=== PATIENT | female | born 1995 | race Caucasian/White ===

== ENCOUNTER 2020-10-04 17:12 | Emergency (ER) | payer BC ==
--- OUTSIDE RECORDS SUMMARY | 2020-10-04 17:16 | XMS REPORT | Continuity of Care Document ---
:1995 Author Organization [facility] t Address 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 [facility] dysmenorrh Dysmenorrh 0-27 da ea ea 00:00: Medical 00 Group Bacterial Bacterial Problem Active 2020-0 [facility] vaginosis Vaginosis 1-31 da 00:00: Medical 00 Group Cigarette Cigarette Problem Active 2020-0 [facility] smoker Smoker 1 da 00:00: Medical 00 Group History of History of Problem Active 2020-0 [facility] tubal Tubal 1 da ligation Ligation 00:00: Medica l 00 Group Gynecologi Gynecologi Problem Active 2020-0 [facility] c c 1 da examinatio Examinatio 00:00: Me dical n n 00 Group History of History of Problem Active 2020-0 [facility] endometria Endometria 1- da l ablation l Ablation 00:00: Me dical 00 Group Menorrhagi Menorrhagi Problem Active [facility] a a 5-21 da 00:00: Medical 00 Group Sterilizat Sterilizat Problem Active [facility] ion ion 5-21 da requested Requested 00:00: Medi chani 00 Group Allergies, Adverse Reactions, Alerts Allergy Allergy Status Severity Reaction(s) Onset Inactive Treating Comm ents Source Name Type Date Date Clinician Codeine Allergy Active Moderate Hives [facility] substanc [facility] Social History Smoking Status Start Date Stop Date Source Light Tobacco Smoker [facility] Medications Ordered Filled Start Stop Current Ordering Indication Dosage Frequency Signature Comments Components Source Medication Medication Date Date Medication? Clinician (SIG) Name Name buspirone buspirone No buspirone [facility] 15 mg 15 mg 15 mg da tablet tablet tablet Medical Group cefuroxime cefuroxime No 1 BID cefuroxime [facility] axetil 250 axetil 250 axetil 250 da mg tablet mg tablet mg tablet Medical Take 1 Take 1 Take 1 Group tablet tablet tablet twice a day twice a day twice a by oral by oral day by route for 7 route for 7 oral route days. days. for 7 days. clindamycin clindamycin No 1capsul TID clindamyci [facility] HCl 300 mg HCl 300 mg e(s) n HCl 300 da capsule capsule mg capsule Med ical Take 1 Take 1 Take 1 Group capsule 3 capsule 3 capsule 3 times a day times a day times a by oral by oral day by route for 7 route for 7 oral route days. days. for 7 days. escitalopra escitalopra No escitalopr [facility] m 20 mg m 20 mg am 20 mg da tablet tablet tablet Medical Group hydrocodone hydrocodone No hydrocodon [facility] 5 5 e 5 da mg-acetamin mg-acetamin mg-acetami Medical ophen 325 ophen 325 nophen 325 Group mg tablet mg tablet mg tablet TK 1-2 T PO TK 1-2 T PO TK 1-2 T Q 6 H PRN P Q 6 H PRN P PO Q 6 H PRN P ibuprofen ibuprofen No ibuprofen [facility] 800 mg 800 mg 800 mg da tablet TK 1 tablet TK 1 tablet TK Medical T PO Q 6 H T PO Q 6 H 1 T PO Q 6 Group PRN PRN H PRN metronidazo metronidazo No metronidaz [facility] le 500 mg le 500 mg ole 500 mg da tablet Take tablet Take tablet Medical 1 tablet 1 tablet Take 1 Group twice a day twice a day tablet by oral by oral twice a route for 7 route for 7 day by days. days. oral route for 7 days. naproxen naproxen No naproxen [facility] 500 mg 500 mg 500 mg da tablet tablet tablet Medical Group oxycodone-a oxycodone-a No oxycodone- [facility] cetaminophe cetaminophe acetaminop da n 5 mg-325 n 5 mg-325 hen 5 Me dical mg tablet mg tablet mg-325 mg Group tablet sulfamethox sulfamethox No sulfametho [facility] azole 800 azole 800 xazole 800 da mg-trimetho mg-trimetho mg-trimeth Medical prim 160 mg prim 160 mg oprim 160 Group tablet tablet mg tablet Vital Signs Vital Name Observation Time Observation Value Comments Source BP Diastolic 2020-04-12 00:00:00 91 mm[Hg] [facility] Height 2020-04-12 00:00:00 62 [in_i] [facility] BMI (Body Mass 2020-04-12 00:00:00 28.5 kg/m2 [facility] Medical Index) Group BP Systolic 2020-04-12 00:00:00 145 mm[Hg] [facility] Body Weight 2020-04-12 00:00:00 156 [lb_av] [facility] BP Diastolic 2020-03-26 00:00:00 81 mm[Hg] [facility] Height 2020-03-26 00:00:00 62 [in_i] [facility] BMI (Body Mass 2020-03-26 00:00:00 28.5 kg/m2 [facility] Medical Index) Group BP Systolic 2020-03-26 00:00:00 135 mm[Hg] [facility] Body Weight 2020-03-26 00:00:00 155.6 [lb_av] [facility] BP Diastolic 2020-03-16 00:00:00 87 mm[Hg] [facility] Height 2020-03-16 00:00:00 62 [in_i] [facility] BMI (Body Mass 2020-03-16 00:00:00 28.2 kg/m2 [facility] BP Systolic 2020-03-16 00:00:00 129 mm[Hg] [facility] Body Weight 2020-03-16 00:00:00 154 [lb_av] [facility] BP Systolic 2019-06-20 00:00:00 129 mm[Hg] [facility] Body Weight 2019-06-20 00:00:00 147.1 [lb_av] [facility] BP Diastolic 2019-06-20 00:00:00 85 mm[Hg] [facility] Height 2019-06-20 00:00:00 62 [in_i] [facility] BMI (Body Mass 2019-06-20 00:00:00 26.9 kg/m2 [facility] BP Diastolic 2018-11-28 00:00:00 85 mm[Hg] [facility] Height 2018-11-28 00:00:00 62 [in_i] [facility] BMI (Body Mass 2018-11-28 00:00:00 25.8 kg/m2 [facility] BP Systolic 2018-11-28 00:00:00 138 mm[Hg] [facility] Body Weight 2018-11-28 00:00:00 141.1 [lb_av] [facility] BP Diastolic 2018-11-11 00:00:00 86 mm[Hg] [facility] Height 2018-11-11 00:00:00 62 [in_i] [facility] BMI (Body Mass 2018-11-11 00:00:00 26.1 kg/m2 [facility] BP Systolic 2018-11-11 00:00:00 145 mm[Hg] [facility] Body Weight 2018-11-11 00:00:00 142.8 [lb_av] [facility] BP Diastolic 2018-10-08 00:00:00 87 mm[Hg] [facility] Height 2018-10-08 00:00:00 62 [in_i] [facility] BMI (Body Mass 2018-10-08 00:00:00 25.8 kg/m2 [facility] BP Systolic 2018-10-08 00:00:00 140 mm[Hg] [facility] Body Weight 2018-10-08 00:00:00 141 [lb_av] [facility] Procedures Procedure Date / Time Performing Clinician Source Performed Total Laparoscopic 2020-03-31 00:00:00 [facility] US, transvaginal 2020-03-16 00:00:00 [facility] Endometrial Ablation 2018-11-13 00:00:00 [facility] Bilateral Tubal Ligation 2018-11-13 00:00:00 [facility] Plan of Care Planned Activity Planned Date Details Comments Source Diagnostic Test 2020-04-12 urinalysis, [facility] Pending 00:00:00 dipstick [code = Group urinalysis, dipstick] Diagnostic Test 2020-04-12 culture, urine [facility] Pending 00:00:00 [code = culture, Group urine] Diagnostic Test 2020-04-12 [place], vaginal [facility] Pending 00:00:00 [code = [place], Group vaginal] Encounters Start End Encounter Admission Attending Care Care Encounter Source Date/Time Date/Time Type Type Clinicians Facility Department ID 2020-04-13 2020-04-13 [facility] [id number] 00:00:00 00:00:00 [facility] [id number] [facility] [id number] 2020-04-12 2020-04-12 Fan FAGAN [place] - [id number] [facility] 00:00:00 00:00:00 Discovery jean paul Lawler MD: [address] [place] [address] [address] [address] , Ph. [phone] 2020-03-26 2020-03-26 Fan FAGAN [place] - [id number] [facility] 00:00:00 00:00:00 Discovery jean paul Lawler MD: [address] [place] [address] 101, [place] [address] , Ph. [phone] 2020-03-16 2020-03-16 Fan FAGAN [place] - [id number] [facility] 00:00:00 00:00:00 Discovery jean paul Lawler MD: [address] [place] [address] , Ph. [phone] 2020-03-08 2020-03-08 Telephone [place] [id number] 00:00:00 00:00:00 Ambika Kinsey [facility] [id number] CLINICS [id number] 2020-03-08 2020-03-[id number] 00:00:00 00:00:00 Ambika Kinsey [facility] [id number] CLINICS [id number] 2020-03-05 2020-03-[id number] [id number] 11:03:05 11:33:05 Visit Ambika Kinsey [facility] [id number] CLINICS [id number] 2019-06-20 2019-06-20 Kamila Timmons MM [place] - [id number] 1 [facility] 00:00:00 00:00:00 Discovery jean paul Osuna NP: [address] [place] [address] , Ph. [phone] 2018-11-28 2018-11-28 Fan FAGAN [place] - [id number] [facility] 00:00:00 00:00:00 Discovery jean paul Lawler MD: [address] [place] [address] , Ph. [phone] 2018-11-11 2018-11-11 Fan FAGAN [place] - [id number] [facility] 00:00:00 00:00:00 Discovery jean paul Lawler MD: [address] [place] [address] , Ph. [phone] 2018-10-08 2018-10-08 Fan [facility] [place] - [id number] [facility] 00:00:00 00:00:00 Discovery jean paul Lawler MD: [address] [place] [address] , Ph. [phone] Results Test Description Test Time Test Comments Results Result Comments Source Urinalysis macro (dipstick) panel - Urine 2020-04-12 09:57:2 8 Test Item Value Reference Range Interpretation Comme nts Leukocytes (test code = Leukocytes) Small Nitrite (test code = Nitrite) negative Urobilinogen (test code = Urobilinogen) 2 Protein (test code = Protein) 30 pH (test code = pH) 5.5 Blood (test code = Blood) Large Specific [place] (test code = Specific [place]) 1.030 Ketone (test code = Ketone) Negative Bilirubin (test code = Bilirubin) Negative Glucose (test code = Glucose) 100 Appearance (test code = Appearance) Slightly Cloudy Color (test code = Color) Yellow [facility] W Auto Differential panel - [id number] 10:43:00 Test Item Value Reference Range Interpretation Comments white blood count (test code = 11.3 K/uL 4.0-11.5 white blood count) red blood count (test code = red 4.87 M/uL 3.80-5.20 blood count) hemoglobin (test code = 14.0 g/dL 10.5-15.7 hemoglobin) hematocrit (test code = 42.4 % 34.0-50.0 hematocrit) MCV [Entitic volume] (test code = 87.1 fL 86-100 19214-2) mean corpuscular hemoglobin (test 28.7 pg 26.2-33.4 code = mean corpuscular hemoglobin) mean corpuscular HGB conc (test 33.0 g/dL 30-34 code = mean corpuscular HGB conc) red cell distribution width (test 12.6 % 12.0-15.5 code = red cell distribution width) platelet count (test code = 311 K/uL 165-450 platelet count) mean platelet volume (test code = 9.0 fL 9.4-12.6 L mean platelet volume) Segmented neutrophils/100 64.6 % 44.4-80.1 leukocytes in Blood (test code = 72061-9) Immature granulocytes [#/volume] 0.0 K/uL 0.0-0.03 in Blood (test code = 38354-1) lymphocyte% (test code = 27.1 % 10.0-50.0 lymphocyte%) mono % (test code = mono %) 6.4 % 3.6-12.0 eos % (test code = eos %) 1.0 % 0.0-5.4 Basophils/100 leukocytes in 0.5 % 0.1-1.2 Unspecified specimen (test code = 19633-4) Band form neutrophils [#/volume] 7.28 K/uL 1.56-6.13 H in Blood (test code = 70822-4) Lymphocytes [#/volume] in 3.1 K/uL 1.18-3.74 Unspecified specimen by Automated count (test code = 15967-2) mono # (test code = mono #) 0.72 K/uL 0.24-0.86 eos # (test code = eos #) 0.11 K/uL 0.04-0.36 basophil # (test code = basophil 0.06 K/uL 0.01-0.08 #) NRBC% (test code = NRBC%) 0 /100 WBC 0-0.2 NRBC# (test code = NRBC#) 0 [facility] [id number] 10:01:09 Test Item Value Reference Range Interpretation Comments Test (test code = negative Test) [facility] [id number] 10:01:09 Test Item Value Reference Range Interpretation Comments Test (test code = negative Test) [facility]Neisseria gonorrhoeae DNA [Presence] in Unspecified specimen by SACHA with [id number] 00:00:00 Test Item Value Reference Range Interpretation Comments CT/NG (test code = CT/NG) normal [facility]Neisseria gonorrhoeae DNA [Presence] in Unspecified specimen by SACHA with [id number] 00:00:00 Test Item Value Reference Range Interpretation Comments CT/NG (test code = CT/NG) normal [facility]dipstick) panel - [id number] 11:38:56 Test Item Value Reference Range Interpretation Comments Leukocytes (test code = Trace Leukocytes) Nitrite (test code = negative Nitrite) Urobilinogen (test code = .2 Urobilinogen) Protein (test code = Negative Protein) pH (test code = pH) 5.5 Blood (test code = Blood) Non-Hemolyzed: Trace Specific [place] (test 1.030 code = Specific [place]) Ketone (test code = Negative Ketone) Bilirubin (test code = Negative Bilirubin) Glucose (test code = Negative Glucose) Appearance (test code = Clear Appearance) Color (test code = Color) Yellow [facility]stick) panel - [id number] 11:38:56 Test Item Value Reference Range Interpretation Comments Leukocytes (test code = Trace Leukocytes) Nitrite (test code = negative Nitrite) Urobilinogen (test code = .2 Urobilinogen) Protein (test code = Negative Protein) pH (test code = pH) 5.5 Blood (test code = Blood) Non-Hemolyzed: Trace Specific [place] (test 1.030 code = Specific [place]) Ketone (test code = Negative Ketone) Bilirubin (test code = Negative Bilirubin) Glucose (test code = Negative Glucose) Appearance (test code = Clear Appearance) Color (test code = Color) Yellow [facility]stick) panel - [id number] 11:38:56 Test Item Value Reference Range Interpretation Comments Leukocytes (test code = Trace Leukocytes) Nitrite (test code = negative Nitrite) Urobilinogen (test code = .2 Urobilinogen) Protein (test code = Negative Protein) pH (test code = pH) 5.5 Blood (test code = Blood) Non-Hemolyzed: Trace Specific [place] (test 1.030 code = Specific [place]) Ketone (test code = Negative Ketone) Bilirubin (test code = Negative Bilirubin) Glucose (test code = Negative Glucose) Appearance (test code = Clear Appearance) Color (test code = Color) Yellow [facility] Group[facility] macro (dipstick) panel - [id number] 10:41:00 Test Item Value Reference Range Interpretation Comments Leukocytes (test code = Leukocytes) Trace Nitrite (test code = Nitrite) negative Urobilinogen (test code = .2 Urobilinogen) Protein (test code = Protein) 30 pH (test code = pH) 5.5 Blood (test code = Blood) Moderate Specific [place] (test code = 1.030 Specific [place]) Ketone (test code = Ketone) Negative Bilirubin (test code = Bilirubin) Small Glucose (test code = Glucose) Negative Appearance (test code = Appearance) Clear Color (test code = Color) Yellow [facility] GroupUrinalysis macro (dipstick) panel - [id number] 09:53:00 Test Item Value Reference Range Interpretation Comments Leukocytes (test code = Leukocytes) Small Nitrite (test code = Nitrite) negative Urobilinogen (test code = .2 Urobilinogen) Protein (test code = Protein) 30 pH (test code = pH) 5.5 Blood (test code = Blood) Negative Specific [place] (test code = 1.030 Specific [place]) Ketone (test code = Ketone) Trace Bilirubin (test code = Bilirubin) Small Glucose (test code = Glucose) Negative Appearance (test code = Appearance) Clear Color (test code = Color) Yellow [facility] GroupUrinalysis macro (dipstick) panel - [id number] 09:53:00 Test Item Value Reference Range Interpretation Comments Leukocytes (test code = Leukocytes) Small Nitrite (test code = Nitrite) negative Urobilinogen (test code = .2 Urobilinogen) Protein (test code = Protein) 30 pH (test code = pH) 5.5 Blood (test code = Blood) Negative Specific [place] (test code = 1.030 Specific [place]) Ketone (test code = Ketone) Trace Bilirubin (test code = Bilirubin) Small Glucose (test code = Glucose) Negative Appearance (test code = Appearance) Clear Color (test code = Color) Yellow [facility] Grouppregnancy test, [id number] 09:40:00 Test Item Value Reference Range Interpretation Comments Test (test code = negative Test) [facility] Grouppregnancy test, [id number] 09:40:00 Test Item Value Reference Range Interpretation Comments Test (test code = negative Test) [facility] W Auto Differential panel - [id number] 08:56:00 Test Item Value Reference Range Interpretation Comments white blood count (test code = 12.4 K/uL 4.0-11.5 H white blood count) red blood count (test code = red 5.09 M/uL 3.80-5.20 blood count) Hemoglobin [Mass/volume] in Blood 13.9 g/dL 10.5-15.7 (test code = 718-7) hematocrit (test code = hematocrit) 42.5 % 34.0-50.0 Erythrocyte mean corpuscular volume 83.7 fL 78-98 [Entitic volume] (test code = 00836-2) Erythrocyte mean corpuscular 27.2 pg 26.2-33.4 hemoglobin [Entitic mass] (test code = 59972-7) mean corpuscular HGB conc (test 32.6 g/dL 31.5-36.2 code = mean corpuscular HGB conc) red cell distribution width (test 11.4 % 11.5-15.5 L code = red cell distribution width) Platelets [#/volume] in Blood (test 348 K/uL 137-338 H code = 39510-3) Platelet mean volume [Entitic 6.7 fL 8.4-11.8 L volume] in Blood (test code = 22646-6) Neutrophils.band form/100 65.8 % 44.4-80.1 leukocytes in Blood (test code = 12207-7) Lymphocytes/100 leukocytes in Body 24.6 % 10.0-50.0 fluid (test code = 42599-9) Monocytes/100 leukocytes in Blood 6.3 % 3.6-12.0 by Automated count (test code = 5905-5) Eosinophils/100 leukocytes in Blood 2.4 % 0.0-5.4 by Automated count (test code = 713-8) Basophils/100 leukocytes in 0.9 % 0.0-0.79 H Unspecified specimen (test code = 48464-0) [facility] W Auto Differential panel - [id number] 08:56:00 Test Item Value Reference Range Interpretation Comments white blood count (test code = 12.4 K/uL 4.0-11.5 H white blood count) red blood count (test code = red 5.09 M/uL 3.80-5.20 blood count) Hemoglobin [Mass/volume] in Blood 13.9 g/dL 10.5-15.7 (test code = 718-7) hematocrit (test code = hematocrit) 42.5 % 34.0-50.0 Erythrocyte mean corpuscular volume 83.7 fL 78-98 [Entitic volume] (test code = 89176-3) Erythrocyte mean corpuscular 27.2 pg 26.2-33.4 hemoglobin [Entitic mass] (test code = 45993-5) mean corpuscular HGB conc (test 32.6 g/dL 31.5-36.2 code = mean corpuscular HGB conc) red cell distribution width (test 11.4 % 11.5-15.5 L code = red cell distribution width) Platelets [#/volume] in Blood (test 348 K/uL 137-338 H code = 25158-1) Platelet mean volume [Entitic 6.7 fL 8.4-11.8 L volume] in Blood (test code = 16374-3) Neutrophils.band form/100 65.8 % 44.4-80.1 leukocytes in Blood (test code = 31798-9) Lymphocytes/100 leukocytes in Body 24.6 % 10.0-50.0 fluid (test code = 29939-1) Monocytes/100 leukocytes in Blood 6.3 % 3.6-12.0 by Automated count (test code = 5905-5) Eosinophils/100 leukocytes in Blood 2.4 % 0.0-5.4 by Automated count (test code = 713-8) Basophils/100 leukocytes in 0.9 % 0.0-0.79 H Unspecified specimen (test code = 68985-7) [facility]
[2020-10-04] MEDS ORDERED: NA CHLORIDE 0.9% 1,000 ML ONE (19:48)
[2020-10-04 19:49] LABS: Absolute Lymphocytes (CBC) 2.8 K/uL (0.7-4.9); Basophils % 0.5 % (0-1.3); Hematocrit 44.2 % (36.0-45.0); Lymphocytes % 24.5 % (15.3-44.8); MPV 7.7 fL (7.6-11.3); RBC Red Blood Cell Count 5.22 M/uL (3.86-4.86)
--- NOTE | 2020-10-04 19:59 | RAD REPORT ---
EXAM DESCRIPTION: CT - Head Brain Wo Cont - 10/04/2020 7:45 pm CLINICAL HISTORY: DIZZINESS Headache, drowsiness COMPARISON: No comparisons TECHNIQUE: All CT scans are performed using dose optimization technique as appropriate and may inclu de automated exposure control or mA/KV adjustment according to patient size. FINDINGS: No intracranial hemorrhage, hydrocephalus or extra-axial fluid collection.No areas of brai n edema or evidence of midline shift. The paranasal sinuses and mastoids are clear. The calvarium is intact. IMPRESSION: No acute intracranial abnormality.
--- NOTE | 2020-10-04 20:02 | RAD REPORT ---
EXAM DESCRIPTION: RAD - Chest Single View - 10/04/2020 7:57 pm CLINICAL HISTORY: PALPITATIONS Chest pain. COMPARISON: Head Brain Wo Cont dated 10/04/2020 FINDINGS: Portable technique limits examination quality. The lungs are grossly clear. The heart is normal in size. No displaced fractures. IMPRESSION: No acute intrathoracic process suspected.
[2020-10-04 20:15] LABS: ALT/SGPT 17 U/L (12-78); AST/SGOT 13 U/L (15-37); Albumin 4.3 g/dL (3.4-5.0); Alkaline Phosphatase 108 U/L (45-117); BUN Blood Urea Nitrogen 5 mg/dL (7-18); Bicarbonate 26 mmol/L (21-32); Bilirubin Direct 0.1 mg/dL (0-0.2); Bilirubin Total 0.4 mg/dL (0.2-1.0); Glucose Level 88 mg/dL (74-106); Magnesium 2.2 mg/dL (1.8-2.4); Potassium 3.5 mmol/L (3.5-5.1); Protein, Total 8.2 g/dL (6.4-8.2); Sodium Level 138 mmol/L (136-145); Troponin (Emerg Dept Use Only) < 0.02 ng/mL (0.0-0.045)
--- NOTE | 2020-10-04 20:58 | ER ---
Nurse's Notes [facility] Name: Lula Ellis Age: 25 yrs Sex: Female : 1995 Arrival Date: 10/04/2020 Time: 17:15 Bed 2 Private MD: Diagnosis: Headache;Palpitations Presentation: 10/04 17:26 Chief complaint: Patient states: Woke up this morning shaky, dizzy and lightheaded, ca1 vision started to blur. Went to my DrNarcisa and she did a covid test and it was negative. last BGL at the doctor's office at 1530 - 1600 was 88. Coronavirus screen: Client denies travel out of the [place] in the last 14 days. The client reports previous COVID testing was negative. Date of collection: October 04, 2020. Ebola Screen: Patient negative for fever greater than or equal to 101.5 degrees Fahrenheit, and additional compatible Ebola Virus Disease symptoms Patient denies exposure to infectious person. Patient denies travel to an Ebola-affected area in the 21 days before illness onset. No symptoms or risks identified at this time. Initial Sepsis Screen: Does the patient meet any 2 criteria? No. Patient's initial sepsis screen is negative. Does the patient have a suspected source of infection? No. Patient's initial sepsis screen is negative. Risk Assessment: Do you want to hurt yourself or someone else? Patient reports no desire to harm self or others. Onset of symptoms was October 04, 2020. 17:26 Method Of Arrival: Ambulatory ca1 17:26 Acuity: SHABANA 3 ca1 17:33 Note BGL 84. 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 Flu vaccine is not up to date. - Social history:: Smoking status: Patient reports the use of cigarette tobacco products, smokes one-half pack cigarettes per day. Screenin:16 Abuse screen: Denies threats or abuse. Nutritional screening: No deficits noted. ea Tuberculosis screening: No symptoms or risk factors identified. Fall Risk None identified. Assessment: 19:56 General: Appears in no apparent distress. Behavior is calm, cooperative, appropriate jb4 for age. Pain: Denies pain. Neuro: Level of Consciousness is awake, alert, obeys commands, Oriented to person, place, time. Cardiovascular: Patient's skin is warm and dry. Respiratory: Airway is patent Respiratory effort is even, unlabored, Respiratory pattern is regular, symmetrical. Derm: Skin is pink, warm \T\ dry. 20:53 Reassessment: Patient and/or family updated on plan of care and expected duration. Pain ea level reassessed. Patient is alert, oriented x 3, equal unlabored respirations, skin warm/dry/pink. Provider at bedside updating pt on plan of care. 21:29 Reassessment: Patient and/or family updated on plan of care and expected duration. Pain ea level reassessed. Patient is alert, oriented x 3, equal unlabored respirations, skin warm/dry/pink. Discharge instruction given to patient verbalized the understanding of instruction. Pt left ED ambulatory accompanied by family, pt tolerating well. Patient states feeling better. Vital Signs: 17:26 BP 140 / 95; Pulse 110; Resp 16 S; Temp 97.9(TE); Pulse Ox 100% on R/A; Weight 70.67 ca1 kg; Height 5 ft. 2 in. (157.48 cm) (R); Pain 0/10; 20:55 BP 128 / 80; Pulse 78; Resp 18; Pulse Ox 98% on R/A; ea 21:30 BP 120 / 78; Pulse 70; Resp 18; Pulse Ox 98% ; ea 17:26 Body Mass Index 28.50 (70.67 kg, 157.48 cm) ca1 ED Course: 17:15 Patient arrived in ED. ds1 17:29 Triage completed. ca1 17:30 Arm band placed on right wrist. ca1 19:07 Dion Doan NP is PHCP. pm1 19:07 Josr Sol MD is Attending Physician. pm1 19:16 Melissa Larose RN is Primary Nurse. ea 19:18 Patient has correct armband on for positive identification. Bed in low position. Call ea light in reach. Side rails up X2. 19:39 Inserted saline lock: 22 gauge in left antecubital area, using aseptic technique. Blood ds4 collected. 19:44 CT Head Brain wo Cont In Process Unspecified. EDMS 19:56 XRAY Chest (1 view) In Process Unspecified. EDMS 20:57 Joel Ruelas MD is Attending Physician. pm1 21:29 No provider procedures requiring assistance completed. IV discontinued, intact, ea bleeding controlled, No redness/swelling at site. Pressure dressing applied. Administered Medications: 19:48 Drug: NS 0.9% 1000 ml Route: IV; Rate: 1000 ml; Site: left antecubital; ea 21:31 Follow up: Response: No adverse reaction; IV Status: Completed infusion; IV Intake: ea 1000ml 21:00 Drug: Benadryl (diphenhydrAMINE) 12.5 mg Route: IVP; Site: left antecubital; ea 21:32 Follow up: Response: No adverse reaction ea 21:04 Drug: TORadol (ketorolac) 30 mg Route: IVP; Site: left antecubital; ea 21:31 Follow up: Response: No adverse reaction ea 21:04 Drug: Reglan (metoCLOPramide) 10 mg Route: IVP; Site: left antecubital; ea 21:31 Follow up: Response: No adverse reaction ea Intake: 21:31 IV: 1000ml; Total: 1000ml. ea Outcome: 20:57 Discharge ordered by . pm1 21:29 Discharged to home ambulatory. ea 21:29 Condition: stable 21:29 Discharge instructions given to patient, Instructed on discharge instructions, follow up and referral plans. Demonstrated understanding of instructions, follow-up care. 21:30 Patient left the ED. ea Signatures: Dispatcher [employer] EDMI Annmarie Yates ds1 Manoj Robles ds4 Dion Doan, SUDHA MARINE ELECTRICIAN HELPER pm1 Carlos Gutierrez RN RN jb4 Melissa Larose RN RN ea Acob, Cheryl, RN RN ca1 Corrections: (The following items were deleted from the chart) 17:31 17:26 Chief complaint: Patient states: Woke up this morning shaky, dizzy and ca1 lightheaded, vision started to blur. Went to my DrNarcisa and she did a covid test and it was negative. last BGL at the doctor's office at 1530 - 1600 ca1
--- NOTE | 2020-10-04 20:58 | EDPHYS ---
Physician Documentation [facility] Name: Lula Ellis Age: 25 yrs Sex: Female : 1995 Arrival Date: 10/04/2020 Time: 17:15 Bed 2 Private MD: ED Physician Joel Ruelas HPI: 10/04 19:21 This 25 yrs old Female presents to ER via Ambulatory with complaints of pm1 Headache, dizziness, palpitations. 19:21 The patient presents with a history of heart skipping beats. Onset: The pm1 symptoms/episode began/occurred today. Duration: The patient or guardian reports multiple episodes, that have now resolved. Modifying factors: The symptoms are aggravated by nothing. The symptoms are alleviated by nothing. Associated signs and symptoms: Pertinent positives: lightheadedness, headache, Pertinent negatives: chest pain, cough, nausea, SOB, vomiting. Severity of symptoms: in the emergency department the symptoms have resolved. The patient has been recently seen by a physician: the patient's primary care provider, with similar presenting complaints, covid test performed and negative. Tested her blood sugar and it was within normal limits. Instructed her to report to the ER for further evaluation and treatment. 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 Flu vaccine is not up to date. - Social history:: Smoking status: Patient reports the use of cigarette tobacco products, smokes one-half pack cigarettes per day. ROS: 19:21 Eyes: Negative for injury, pain, redness, and discharge, ENT: Negative for injury, pm1 pain, and discharge, Neck: Negative for injury, pain, and swelling. 19:21 Respiratory: Negative for shortness of breath, cough, wheezing, and pleuritic chest pain, Abdomen/GI: Negative for abdominal pain, nausea, vomiting, diarrhea, and constipation, Back: Negative for injury and pain, : Negative for injury, bleeding, discharge, and swelling, MS/Extremity: Negative for injury and deformity, Skin: Negative for injury, rash, and discoloration. 19:21 Constitutional: Positive for poor PO intake, for many months, Negative for body aches, fever. 19:21 Cardiovascular: Positive for palpitations, Negative for chest pain, edema. 19:21 Neuro: Positive for dizziness, headache, Negative for numbness, tingling, weakness. Exam: 19:21 Constitutional: This is a well developed, well nourished patient who is awake, alert, pm1 and in no acute distress. Head/Face: Normocephalic, atraumatic. 19:21 Back: No spinal tenderness. No costovertebral tenderness. Full range of motion. Skin: Warm, dry with normal turgor. Normal color with no rashes, no lesions, and no evidence of cellulitis. MS/ Extremity: Pulses equal, no cyanosis. Neurovascular intact. Full, normal range of motion. 19:21 Eyes: Exam is negative for acute changes, Periorbital structures: appear normal, Pupils: no acute changes, Extraocular movements: no acute changes, Conjunctiva: normal. 19:21 ENT: External ear(s): are unremarkable, Ear canal(s): are normal, TM's: are normal, Mouth: Lips: normal, Oral mucosa: normal, pink and intact, moist. 19:21 Cardiovascular: Rate: normal, Rhythm: regular, Pulses: no pulse deficits are appreciated. 19:21 Respiratory: Exam negative for acute changes, respiratory distress, shortness of breath, Breath sounds: are clear throughout. 19:21 Neuro: Orientation: is normal, Mentation: is normal, Motor: is normal, moves all fours. Vital Signs: 17:26 BP 140 / 95; Pulse 110; Resp 16 S; Temp 97.9(TE); Pulse Ox 100% on R/A; Weight 70.67 ca1 kg; Height 5 ft. 2 in. (157.48 cm) (R); Pain 0/10; 20:55 BP 128 / 80; Pulse 78; Resp 18; Pulse Ox 98% on R/A; ea 21:30 BP 120 / 78; Pulse 70; Resp 18; Pulse Ox 98% ; ea 17:26 Body Mass Index 28.50 (70.67 kg, 157.48 cm) ca1 MDM: 19:10 Patient medically screened. pm1 20:55 Data reviewed: vital signs. Data interpreted: Pulse oximetry: on room air is 100 %. pm1 Interpretation: normal. Counseling: I had a detailed discussion with the patient and/or guardian regarding: the historical points, exam findings, and any diagnostic results supporting the discharge/admit diagnosis, lab results, radiology results, the need for outpatient follow up, to return to the emergency department if symptoms worsen or persist or if there are any questions or concerns that arise at home. 10/04 17:45 Order name: Glucose, Ancillary Testing; Complete Time: 19:27 EDMS 10/04 19:21 Order name: Basic Metabolic Panel pm1 10/04 19:21 Order name: CBC with Diff; Complete Time: 20:29 pm1 10/04 19:21 Order name: LFT's; Complete Time: 20:29 pm1 10/04 19:21 Order name: Magnesium; Complete Time: 20:29 pm1 10/04 19:21 Order name: Troponin (emerg Dept Use Only); Complete Time: 20:29 pm1 10/04 19:21 Order name: XRAY Chest (1 view); Complete Time: 20:29 pm1 10/04 19:21 Order name: TSH; Complete Time: 20:29 pm1 10/04 19:21 Order name: CT Head Brain wo Cont; Complete Time: 20:29 pm1 10/04 19:22 Order name: Basic Metabolic Panel; Complete Time: 20:29 EDMS 10/04 19:53 Order name: Glucose, Ancillary Testing; Complete Time: 20:29 EDMS 10/04 19:21 Order name: EKG; Complete Time: 19:22 pm1 10/04 19:21 Order name: Cardiac monitoring; Complete Time: 19:45 pm1 10/04 19:21 Order name: EKG - Nurse/Tech; Complete Time: 19:45 pm1 10/04 19:21 Order name: IV Saline Lock; Complete Time: 19:44 pm1 10/04 19:21 Order name: Labs collected and sent; Complete Time: 19:44 pm1 10/04 19:21 Order name: O2 Per Protocol; Complete Time: 19:44 pm1 10/04 19:21 Order name: O2 Sat Monitoring; Complete Time: 19:44 pm1 Administered Medications: 19:48 Drug: NS 0.9% 1000 ml Route: IV; Rate: 1000 ml; Site: left antecubital; ea 21:31 Follow up: Response: No adverse reaction; IV Status: Completed infusion; IV Intake: ea 1000ml 21:00 Drug: Benadryl (diphenhydrAMINE) 12.5 mg Route: IVP; Site: left antecubital; ea 21:32 Follow up: Response: No adverse reaction ea 21:04 Drug: TORadol (ketorolac) 30 mg Route: IVP; Site: left antecubital; ea 21:31 Follow up: Response: No adverse reaction ea 21:04 Drug: Reglan (metoCLOPramide) 10 mg Route: IVP; Site: left antecubital; ea 21:31 Follow up: Response: No adverse reaction ea Disposition: 22:12 Co-signature as Attending Physician, Joel Ruelas MD. jannet Disposition: 10/04/20 20:57 Discharged to Home. Impression: Palpitations, Headache. - Condition is Stable. - Discharge Instructions: General Headache Without Cause, Palpitations. - Medication Reconciliation Form, Thank You Letter, Antibiotic Education, Prescription Opioid Use form. - Follow up: Emergency Department; When: As needed; Reason: Worsening of condition. Follow up: Private Physician; When: 2 - 3 days; Reason: Recheck today's complaints, Continuance of care, Re-evaluation by your physician. - Problem is new. - Symptoms have improved. Signatures: Dispatcher [employer] EDJoel Beatty MD MD pkDion Rojas, DIRECTOR OF TECHNOLOGY DIRECTOR OF TECHNOLOGY pm1 Melissa Larose RN RN ea Acob, Cheryl, RN RN ca1 Corrections: (The following items were deleted from the chart) 21:30 20:57 10/04/2020 20:57 Discharged to Home. Impression: PalpitationsHeadache. Condition ea is Stable. Forms are Medication Reconciliation Form, Thank You Letter, Antibiotic Education, Prescription Opioid Use. Follow up: Emergency Department; When: As needed; Reason: Worsening of condition. Follow up: Private Physician; When: 2 - 3 days; Reason: Recheck today's complaints, Continuance of care, Re-evaluation by your physician. Problem is new. Symptoms have improved. pm1
[2020-10-04] MEDS ORDERED: METOCLOPRAMIDE 10 MG/2mL INJ ONE (21:18)
[2020-10-04] MEDS ORDERED: DIPHENHYDRAMINE 50 MG/ML VIAL ONE (21:18)
[2020-10-04] MEDS ORDERED: KETOROLAC 30 MG/ML INJ ONE (21:18)
[2020-10-04] MEDS ORDERED: NA CHLORIDE 0.9% 0 ML ONE (21:18)
[2020-10-04 22:00] VITALS: TEMP 97.9
[2020-10-04 22:04] VITALS: O2SAT 98
[2020-10-04 22:06] VITALS: BP 120/78
--- NOTE | 2020-10-05 11:40 | EKG ---
Test Date: 2020-10-04 Test Time: 19:37:42 Chemical Process Analyst: MANDI MEASUREMENT RESULTS: Intervals: Rate: 95 VT: 116 QRSD: 68 QT: 346 QTc: 434 Fabens: P: 62 VT: 116 QRS: 51 T: 22 INTERPRETIVE STATEMENTS: Normal sinus rhythm Nonspecific ST abnormality Abnormal ECG No previous ECG available for comparison Electronically Signed On 10-05-20 11:39:27 CDT by Paul Byrd
== END 2020-10-04 21:30 | disposition home or self-care (01) ==
LOC: ER 17:12
DX: R00.2 Palpitations (principal); R51.9 Headache, unspecified; F17.210 Nicotine dependence, cigarettes, uncomplicated
CPT/HCPCS: 93005; 85025; 80048; 36415; 83735; 82947 ×2; 80076; 84443; 84484; 70450; 71045; J2765; J1200; J7030; 96361; 96374; 96375; 99284